=== PATIENT | male | born 1960 | race Caucasian/White ===

== ENCOUNTER 2016-07-10 10:40 | Inpatient (IN) | payer OTHER ==
[~2016-07-10] VITALS: Ht 177.8 cm; Wt 56.3 kg
[2016-07-10] VITALS (10 sets, daily range): BP systolic 114–160; BP diastolic 64–84
[~2016-07-10 10:40] MED LIST: ATARAX,VISTARIL50 MG PO; HYDROXYZINE HCL50 MG PO; LANTUS 10100 UNITS/; LEVEMIR100 UNIT/2 SC; LYRICA75 MG PO; MORPHINE SULFAT15 M1 PO; NORCO 5/3251 TABLET PO; NOVOLOG 10100 UNITS/ SC; OXYCODONE HCL5 MG PO; PRILOSEC10 MG PO; ROXICODONE5 MG PO; ZENPEP DR 10,01 EACH PO; ZENPEP DR 15,01 EACH PO
[2016-07-10 11:16] LABS: EOSINOPHIL (%) 0 % (0-5); HEMATOCRIT 38.3 % (38.0-50.0); IMMATURE GRANULOCYTE (%) 0.2 % (0.0-0.7); IMMATURE GRANULOCYTE COUNT 0.2 K/uL; LYMPHOCYTE COUNT 1.2 K/uL (1.0-2.8); MCH 30.6 PG (29.0-34.0); MCV 87.4 FL (86-99); MEAN PLAT.VOLUME 10.8 uM^3 (9.0-12.4); MONOCYTE COUNT 0.4 K/uL (0-0.8); NEUTROPHIL (%) 87.3 % (45-76); NEUTROPHIL COUNT 10.8 K/uL (1.8-6.4); PLATELET COUNT 117 K/uL (156-360); RBC DIS.WIDTH-SD 40.8 % (39-53); RED BLOOD COUNT 4.38 M/uL (4.00-5.50); WHITE BLOOD COUNT 12.3 K/uL (4.1-10.2)
[2016-07-10 11:23] LABS: CHLORIDE 64 mEq/L (99-109); INTER. NORMALIZED RATIO 1.1; PROTHROMBIN TIME 11.3 (9.2-11.2)
[2016-07-10 11:27] LABS: ANION GAP 44 MEQ/L (2-14)
[2016-07-10 11:28] LABS: TOTAL BILIRUBIN 0.8 mg/dL (0.0-1.0)
[2016-07-10 11:29] LABS: ALKALINE PHOSPHATASE 183 IU/L (3-129); GFR ESTIMATE (CALCULATED) 12 mL/min/
[2016-07-10 11:30] LABS: UREA NITROGEN (BUN) 83 mg/dL (9-23)
[2016-07-10 11:32] LABS: GLUCOSE 788 mg/dL (70-99); SODIUM 118 mEq/L (136-147)
[2016-07-10 11:33] LABS: LIPASE 9 U/L (1.0-51.0)
[2016-07-10 11:34] LABS: TROP-I INTERPRETATION NEGATIVE; TROPONIN-I 0.07 ng/mL (0.0-0.30)
[2016-07-10 13:00] LABS: Estimated Average Glucose 212 mg/dL (70-123)
[2016-07-10] MEDS ORDERED: OMEPRAZOLE40 M1 PO (13:24)
[2016-07-10 14:42] LABS: GLUCOSE 759 mg/dL (70-99)
[2016-07-10 16:27] LABS: ANION GAP 25 MEQ/L (2-14)
[2016-07-10 16:29] LABS: GFR ESTIMATE (CALCULATED) 14 mL/min/
[2016-07-10 16:30] LABS: UREA NITROGEN (BUN) 80 mg/dL (9-23)
[2016-07-10 16:35] LABS: CHLORIDE 84 mEq/L (99-109); GLUCOSE 532 mg/dL (70-99); POTASSIUM 4.9 mEq/L (3.7-5.4); SODIUM 127 mEq/L (136-147)
[2016-07-10 16:55] LABS: POINT-OF-CARE METER ID UU13113702
[2016-07-10 17:58] LABS: METH RESISTANT S AUREUS PCR NEGATIVE (NEGATIVE)
[2016-07-10 18:00] LABS: PROBE CHECK PASS; SPECIMEN PROCESSING CONTROL PASS
[2016-07-10 18:42] LABS: POINT-OF-CARE METER ID UU13113731
[2016-07-10 20:22] LABS: POINT-OF-CARE METER ID UU13113731; POINT-OF-CARE USER ID PHATLC
[2016-07-10 21:22] LABS: POINT-OF-CARE METER ID UU13113731; POINT-OF-CARE USER ID PHATLC
[2016-07-10 21:27] LABS: ANION GAP 17 MEQ/L (2-14); CHLORIDE 88 MEQ/L (99-109); SAMPLE HEMOLYSIS CHECK 0; SAMPLE ICTERIC CHECK 0; SAMPLE LIPEMIA CHECK 0; SODIUM 132 MEQ/L (136-147)
[2016-07-10 21:32] LABS: UREA NITROGEN (BUN) 69 mg/dL (9-23)
[2016-07-10 21:35] LABS: GFR ESTIMATE (CALCULATED) 18 mL/min/; GLUCOSE 169 mg/dL (70-99); POTASSIUM 3.7 MEQ/L (3.7-5.4)
[2016-07-10 21:46] LABS: POINT-OF-CARE METER ID UU13113731; POINT-OF-CARE USER ID PHATLC
[2016-07-11] VITALS (23 sets, daily range): BP systolic 126–163; BP diastolic 70–95
[2016-07-11 00:21] LABS: POINT-OF-CARE METER ID UU14174217; POINT-OF-CARE USER ID PHATLC
[2016-07-11 00:21] LABS: POINT-OF-CARE METER ID UU14174217; POINT-OF-CARE USER ID PHATLC
[2016-07-11 00:37] LABS: CHLORIDE 91 mEq/L (99-109); POTASSIUM 3.5 mEq/L (3.7-5.4); SODIUM 135 mEq/L (136-147)
[2016-07-11 00:40] LABS: ANION GAP 13 MEQ/L (2-14)
[2016-07-11 00:43] LABS: GFR ESTIMATE (CALCULATED) 18 mL/min/
[2016-07-11 00:44] LABS: UREA NITROGEN (BUN) 68 mg/dL (9-23)
[2016-07-11 00:51] LABS: GLUCOSE 77 mg/dL (70-99)
[2016-07-11 01:33] LABS: POINT-OF-CARE METER ID UU14174217; POINT-OF-CARE USER ID PHATLC
[2016-07-11 02:12] LABS: POINT-OF-CARE METER ID UU13113731; POINT-OF-CARE USER ID PHATLC
[2016-07-11 04:33] LABS: POINT-OF-CARE METER ID UU13113731; POINT-OF-CARE USER ID 609231305
[2016-07-11 05:00] LABS: MCH 30.5 PG (29.0-34.0); MCHC 36.5 G/DL (30.0-36.0); MCV 83.6 FL (86-99); RBC DIS.WIDTH-CV 12.7 % (11.8-14.6); RBC DIS.WIDTH-SD 37.4 % (39-53); RED BLOOD COUNT 3.71 M/uL (4.00-5.50)
[2016-07-11 05:14] LABS: CHLORIDE 92 mEq/L (99-109); POTASSIUM 3.5 mEq/L (3.7-5.4); SODIUM 136 mEq/L (136-147)
[2016-07-11 05:15] LABS: GLUCOSE 92 mg/dL (70-99); WHITE BLOOD COUNT 4.8 K/uL (4.1-10.2)
[2016-07-11 05:17] LABS: ANION GAP 12 MEQ/L (2-14)
[2016-07-11 05:19] LABS: GFR ESTIMATE (CALCULATED) 21 mL/min/
[2016-07-11 05:20] LABS: UREA NITROGEN (BUN) 60 mg/dL (9-23)
[2016-07-11 05:45] LABS: MEAN PLAT.VOLUME 10.3 uM^3 (9.0-12.4)
[2016-07-11 05:46] LABS: PLATELET COUNT 60 K/uL (156-360)
[2016-07-11 07:18] LABS: POINT-OF-CARE METER ID UU13113731; POINT-OF-CARE USER ID 606021424
[2016-07-11 10:36] LABS: ANION GAP 13 MEQ/L (2-14); CHLORIDE 87 MEQ/L (99-109); POTASSIUM 3.3 MEQ/L (3.7-5.4); SAMPLE HEMOLYSIS CHECK 0; SAMPLE ICTERIC CHECK 0; SAMPLE LIPEMIA CHECK 0; SODIUM 132 MEQ/L (136-147)
[2016-07-11 10:40] LABS: POINT-OF-CARE METER ID UU14174217; POINT-OF-CARE USER ID PHATLC
[2016-07-11 10:41] LABS: GFR ESTIMATE (CALCULATED) 26 mL/min/; UREA NITROGEN (BUN) 50 mg/dL (9-23)
[2016-07-11 10:50] LABS: GLUCOSE 186 mg/dL (70-99)
[2016-07-11 10:51] LABS: POINT-OF-CARE METER ID UU14174217; POINT-OF-CARE USER ID PHATLC
[2016-07-11 12:33] LABS: POINT-OF-CARE METER ID UU13113731
[2016-07-11 16:45] LABS: ANION GAP 13 MEQ/L (2-14); CHLORIDE 89 MEQ/L (99-109); POTASSIUM 3.4 MEQ/L (3.7-5.4); SAMPLE HEMOLYSIS CHECK 0; SAMPLE ICTERIC CHECK 0; SAMPLE LIPEMIA CHECK 0; SODIUM 132 MEQ/L (136-147)
[2016-07-11 16:51] LABS: GFR ESTIMATE (CALCULATED) 35 mL/min/; GLUCOSE 199 mg/dL (70-99); UREA NITROGEN (BUN) 43 mg/dL (9-23)
[2016-07-11 17:36] LABS: POINT-OF-CARE METER ID UU14174217
[2016-07-12] VITALS (18 sets, daily range): BP systolic 107–164; BP diastolic 51–102
[2016-07-12 00:59] LABS: POINT-OF-CARE METER ID UU14174217
[2016-07-12 04:08] LABS: POINT-OF-CARE METER ID UU14174217
[2016-07-12 04:22] LABS: POINT-OF-CARE METER ID UU14174217
[2016-07-12 06:39] LABS: ANION GAP 9 MEQ/L (2-14); CHLORIDE 93 MEQ/L (99-109); POTASSIUM 3.2 MEQ/L (3.7-5.4); SAMPLE HEMOLYSIS CHECK 0; SAMPLE ICTERIC CHECK 0; SAMPLE LIPEMIA CHECK 0; SODIUM 134 MEQ/L (136-147)
[2016-07-12 06:46] LABS: GFR ESTIMATE (CALCULATED) 42 mL/min/; UREA NITROGEN (BUN) 35 mg/dL (9-23)
[2016-07-12 06:48] LABS: GLUCOSE 46 mg/dL (70-99)
[2016-07-12 08:36] LABS: POINT-OF-CARE METER ID UU14162636
[2016-07-12 09:02] LABS: POINT-OF-CARE METER ID UU14162636
[2016-07-12 09:04] LABS: POINT-OF-CARE METER ID UU14174217
[2016-07-12 12:01] LABS: POINT-OF-CARE METER ID UU14174217
[2016-07-12 17:51] LABS: POINT-OF-CARE METER ID UU14162636
[2016-07-12 22:36] LABS: POINT-OF-CARE METER ID UU14188577
[2016-07-13] VITALS: BP 124/73
[2016-07-13 07:00] LABS: ANION GAP 8 MEQ/L (2-14); CHLORIDE 97 MEQ/L (99-109); SAMPLE HEMOLYSIS CHECK 0; SAMPLE ICTERIC CHECK 0; SAMPLE LIPEMIA CHECK 0; SODIUM 132 MEQ/L (136-147); UREA NITROGEN (BUN) 26 mg/dL (9-23)
[2016-07-13 07:01] LABS: GFR ESTIMATE (CALCULATED) > 59 mL/min/; GLUCOSE 175 mg/dL (70-99); POTASSIUM 4.2 MEQ/L (3.7-5.4)
[2016-07-13 08:33] VITALS: BP 146/84
[2016-07-13 12:08] VITALS: BP 145/72
[2016-07-13 13:56] LABS: POINT-OF-CARE METER ID UU14188577
[2016-07-13 16:35] VITALS: BP 139/69
[2016-07-13 20:06] VITALS: BP 131/69
[2016-07-13 22:15] LABS: POINT-OF-CARE METER ID UU14188577
[2016-07-14 00:06] VITALS: BP 139/67
[2016-07-14 03:51] VITALS: BP 119/64
[2016-07-14 07:57] VITALS: BP 139/60
[2016-07-14 08:52] LABS: ANION GAP 11 MEQ/L (2-14); CHLORIDE 94 MEQ/L (99-109); GFR ESTIMATE (CALCULATED) > 59 mL/min/; POTASSIUM 3.9 MEQ/L (3.7-5.4); SAMPLE HEMOLYSIS CHECK 0; SAMPLE ICTERIC CHECK 0; SAMPLE LIPEMIA CHECK 0; SODIUM 131 MEQ/L (136-147); UREA NITROGEN (BUN) 22 mg/dL (9-23)
[2016-07-14 08:54] LABS: GLUCOSE 34 mg/dL (70-99)
[2016-07-14 15:47] VITALS: BP 135/69
[2016-07-14 20:22] VITALS: BP 118/75
[2016-07-14 23:58] VITALS: BP 122/94
[2016-07-15 03:40] VITALS: BP 108/60
== END 2016-07-15 06:44 | disposition left against medical advice (07) | DRG 637 ==
LOC: EME → EDBD 10:40 → EME 10:40 → EDOF 13:36 → 4WEST 13:36 → EDOF 13:36 → 4WEST 16:23 → 3EAST 07-12 21:56
PROVIDERS: Emergency Medicine; Hospitalist; Internal Medicine; Internal Medicine Pulmonary Disease
DX: E13.10 Other specified diabetes mellitus with ketoacidosis without coma (principal); J18.9 Pneumonia, unspecified organism; K92.2 Gastrointestinal hemorrhage, unspecified; K86.1 Other chronic pancreatitis; F33.9 Major depressive disorder, recurrent, unspecified; E44.0 Moderate protein-calorie malnutrition; N17.9 Acute kidney failure, unspecified; K92.0 Hematemesis; B37.0 Candidal stomatitis; F10.239 Alcohol dependence with withdrawal, unspecified; E87.5 Hyperkalemia; R19.7 Diarrhea, unspecified; B37.9 Candidiasis, unspecified; E86.0 Dehydration; F17.200 Nicotine dependence, unspecified, uncomplicated; R13.10 Dysphagia, unspecified; J02.9 Acute pharyngitis, unspecified; G89.29 Other chronic pain; F14.10 Cocaine abuse, uncomplicated; M19.90 Unspecified osteoarthritis, unspecified site
CPT/HCPCS: 71010; 73030; 73080; 73564; 74176; 80048; 80048 91; 80053; 82948; 83036; 83605; 83690; 84100; 84484; 84999; 85025; 85027; 85610; 85730; 86850; 86900; 86901; 87040; 87641; 93005; 94640; 94640 76; 94799; 99202; 99281; 99285; C9113; J0692; J0696; J1815; J2405; J3010; J3370; J3411; J3480; J7030; J7050; J7070; S0028

== ENCOUNTER 2017-01-24 14:58 | Inpatient (IN) | payer OTHER ==
[~2017-01-24] VITALS: Ht 177.8 cm; Wt 65.7 kg
[~2017-01-24 14:58] MED LIST changes: +OMEPRAZOLE40 M1 PO
[2017-01-24 17:09] LABS: HEMATOCRIT 40.8 % (38.0-50.0); MCH 30.5 PG (29.0-34.0); MCHC 32.1 G/DL (30.0-36.0); MCV 94.9 FL (86-99); MEAN PLAT.VOLUME 9.9 uM^3 (9.0-12.4); NRBC (%) 0.1 /100 WBC (0-0); PLATELET COUNT 366 K/uL (156-360); RBC DIS.WIDTH-SD 55.8 % (39-53); WHITE BLOOD COUNT 16.5 K/uL (4.1-10.2)
[2017-01-24 17:17] LABS: CHLORIDE 89 mEq/L (99-109); SODIUM 140 mEq/L (136-147)
[2017-01-24 17:19] LABS: GLUCOSE 255 mg/dL (70-99)
[2017-01-24 17:20] LABS: ANION GAP 46 MEQ/L (2-14)
[2017-01-24 17:22] LABS: SERUM ETHYL ALCOHOL 299 mg/dL
[2017-01-24 17:23] LABS: GFR ESTIMATE (CALCULATED) 24 mL/min/
[2017-01-24 17:25] LABS: UREA NITROGEN (BUN) 36 mg/dL (9-23)
[2017-01-24 17:26] LABS: SALICYLATE < 5.0 MG/DL (15-30)
[2017-01-24 19:44] LABS: VENOUS PCO2 22 mm Hg (41-51)
[2017-01-24 20:13] LABS: VENOUS PCO2 < 20 mm Hg (41-51)
[2017-01-24 20:17] LABS: CARBON DIOXIDE (BICARBONATE) ND MEQ/L (20-31)
[2017-01-24 20:17] LABS: CARBON DIOXIDE (BICARBONATE) ND MEQ/L (20-31)
[2017-01-24 20:18] LABS: Estimated Average Glucose 169 mg/dL (70-123); HEMOGLOBIN A1c (GLYCOHEMOGLOB) 7.5 % HGB (Below 5.7)
[2017-01-24 20:55] LABS: CREATINE KINASE 99 IU/L (1-294)
[2017-01-24 21:54] LABS: LIPASE 15 U/L (1.0-51.0)
[2017-01-24 21:58] LABS: POINT-OF-CARE METER ID UU13113702
[2017-01-24] MEDS ORDERED: LYRICA75 MG PO (22:11)
[2017-01-24] MEDS ORDERED: OXYCODONE-APAP1 EAC6 PO (22:11)
[2017-01-24 23:04] LABS: POINT-OF-CARE METER ID UU13113702
[2017-01-24 23:58] VITALS: BP 105/67
[2017-01-25] VITALS (15 sets, daily range): BP systolic 140–162; BP diastolic 74–90
[2017-01-25 00:05] LABS: POINT-OF-CARE METER ID UU14208751
[2017-01-25 00:48] LABS: EOSINOPHIL (%) 0 % (0-5); HEMATOCRIT 28.9 % (38.0-50.0); IMMATURE GRANULOCYTE (%) 0.7 % (0.0-0.7); IMMATURE GRANULOCYTE COUNT 0.1 K/uL; INSTRUMENT ABS NEUTROPHIL CT 11.4 K/uL; LYMPHOCYTE COUNT 0.9 K/uL (1.0-2.8); MCH 30.3 PG (29.0-34.0); MCHC 31.5 G/DL (30.0-36.0); MCV 96.3 FL (86-99); MONOCYTE (%) 6.9 % (3-12); MONOCYTE COUNT 0.9 K/uL (0-0.8); NEUTROPHIL (%) 85.6 % (45-76); NEUTROPHIL COUNT 11.4 K/uL (1.8-6.4); NRBC (%) 0.4 /100 WBC (0-0); RBC DIS.WIDTH-CV 16.1 % (11.8-14.6); RBC DIS.WIDTH-SD 57.6 % (39-53); WHITE BLOOD COUNT 13.3 K/uL (4.1-10.2)
[2017-01-25 00:53] LABS: POTASSIUM 5.4 mEq/L (3.7-5.4); SODIUM 140 mEq/L (136-147)
[2017-01-25 00:54] LABS: AMYLASE 64 IU/L (1-118); MAGNESIUM 1.7 mg/dL (1.3-2.7)
[2017-01-25 00:55] LABS: GLUCOSE 148 mg/dL (70-99)
[2017-01-25 00:56] LABS: CHLORIDE 98 mEq/L (99-109); GLUCOSE 148 mg/dL (70-99)
[2017-01-25 00:57] LABS: ANION GAP 35 MEQ/L (2-14); TOTAL BILIRUBIN 0.4 mg/dL (0.0-1.0)
[2017-01-25 00:59] LABS: ALKALINE PHOSPHATASE 231 IU/L (3-129); GFR ESTIMATE (CALCULATED) 29 mL/min/
[2017-01-25 01:00] LABS: SERUM ETHYL ALCOHOL 87 mg/dL; UREA NITROGEN (BUN) 36 mg/dL (9-23)
[2017-01-25 01:03] LABS: LIPASE 15 U/L (1.0-51.0)
[2017-01-25 01:23] LABS: POINT-OF-CARE METER ID UU14208751
[2017-01-25 01:29] LABS: MEAN PLAT.VOLUME 9.3 uM^3 (9.0-12.4); PLAT.SUFFICIENCY ADEQUATE; PLATELET COUNT 215 K/uL (156-360)
[2017-01-25 02:25] LABS: POINT-OF-CARE METER ID UU14208751
[2017-01-25 02:27] LABS: METH RESISTANT S AUREUS PCR NEGATIVE (NEGATIVE)
[2017-01-25 02:29] LABS: PROBE CHECK PASS; SPECIMEN PROCESSING CONTROL PASS
[2017-01-25 02:45] LABS: ADD MIUA? YES; BILIRUBIN NEGATIVE; BLOOD MODERATE; COLOR AMBER ((YELLOW)); GLUCOSE (STRIP) 50; KETONES 20; LEUKOCYTES NEGATIVE; NITRITE NEGATIVE; PROTEIN (STRIP) 100; SPECIFIC GRAVITY 1.016 (1.000-1.030); UROBILINOGEN 0.2 MG/DL (0.2-1.0)
[2017-01-25 03:10] LABS: EPITHELIAL CELLS 1+ /HPF; MUCUS NONE SEEN /LPF; RED BLOOD CELLS 0-5 /HPF (0-5); WHITE BLOOD CELLS 0-5 /HPF (0-5)
[2017-01-25 03:11] LABS: BACTERIA RARE /HPF; CASTS PRESENT /LPF; CRYSTALS PRESENT; UCUL ADDED? NO
[2017-01-25 03:12] LABS: AMORPHOUS URATES CRYSTALS 1+; COARSE GRANULAR CASTS 0-5 /LPF; FINE GRANULAR CASTS 0-5 /LPF
[2017-01-25 03:22] LABS: POINT-OF-CARE METER ID UU14208751
[2017-01-25 04:07] LABS: CHLORIDE 99 mEq/L (99-109); POTASSIUM 5.2 mEq/L (3.7-5.4); SODIUM 135 mEq/L (136-147)
[2017-01-25 04:09] LABS: GLUCOSE 217 mg/dL (70-99)
[2017-01-25 04:10] LABS: ANION GAP 25 MEQ/L (2-14)
[2017-01-25 04:13] LABS: GFR ESTIMATE (CALCULATED) 30 mL/min/
[2017-01-25 04:14] LABS: UREA NITROGEN (BUN) 37 mg/dL (9-23)
[2017-01-25 04:30] LABS: POINT-OF-CARE METER ID UU14208751
[2017-01-25 05:23] LABS: POINT-OF-CARE METER ID UU14208751
[2017-01-25 06:14] LABS: POINT-OF-CARE METER ID UU14208751
[2017-01-25 07:40] LABS: POINT-OF-CARE METER ID UU13113748
[2017-01-25 08:50] LABS: ANION GAP 18 MEQ/L (2-14); CHLORIDE 103 MEQ/L (99-109); GFR ESTIMATE (CALCULATED) 32 mL/min/; GLUCOSE 192 mg/dL (70-99); POTASSIUM 4.8 MEQ/L (3.7-5.4); SAMPLE HEMOLYSIS CHECK 0; SAMPLE ICTERIC CHECK 0; SAMPLE LIPEMIA CHECK 0; SODIUM 139 MEQ/L (136-147); UREA NITROGEN (BUN) 41 mg/dL (9-23)
[2017-01-25 08:50] LABS: POINT-OF-CARE METER ID UU13113748
[2017-01-25 09:46] LABS: POINT-OF-CARE METER ID UU13113748
[2017-01-25 10:14] LABS: POINT-OF-CARE METER ID UU13113748
[2017-01-25 11:08] LABS: POINT-OF-CARE METER ID UU13113748
[2017-01-25 11:53] LABS: ANION GAP 13 MEQ/L (2-14); CHLORIDE 104 MEQ/L (99-109); GFR ESTIMATE (CALCULATED) 35 mL/min/; GLUCOSE 136 mg/dL (70-99); POTASSIUM 4.5 MEQ/L (3.7-5.4); SAMPLE HEMOLYSIS CHECK 0; SAMPLE ICTERIC CHECK 0; SAMPLE LIPEMIA CHECK 0; SODIUM 139 MEQ/L (136-147); UREA NITROGEN (BUN) 40 mg/dL (9-23)
[2017-01-25 12:09] LABS: POINT-OF-CARE METER ID UU13113748
[2017-01-25 13:09] LABS: POINT-OF-CARE METER ID UU13113748
[2017-01-25 14:07] LABS: POINT-OF-CARE METER ID UU13113748
[2017-01-25 15:05] LABS: POINT-OF-CARE METER ID UU13113748
[2017-01-25 16:11] LABS: ANION GAP 11 MEQ/L (2-14); CHLORIDE 104 MEQ/L (99-109); SAMPLE HEMOLYSIS CHECK 0; SAMPLE ICTERIC CHECK 0; SAMPLE LIPEMIA CHECK 0; SODIUM 140 MEQ/L (136-147)
[2017-01-25 16:12] LABS: POINT-OF-CARE METER ID UU13113748
[2017-01-25 16:17] LABS: GFR ESTIMATE (CALCULATED) 39 mL/min/; GLUCOSE 127 mg/dL (70-99); UREA NITROGEN (BUN) 33 mg/dL (9-23)
[2017-01-25 18:24] LABS: POINT-OF-CARE METER ID UU13113748
[2017-01-25 21:56] LABS: HEMATOCRIT 25.9 % (38.0-50.0); MCH 29.7 PG (29.0-34.0); MCHC 33.6 G/DL (30.0-36.0); MCV 88.4 FL (86-99); RBC DIS.WIDTH-CV 15.6 % (11.8-14.6); RED BLOOD COUNT 2.93 M/uL (4.00-5.50); WHITE BLOOD COUNT 8.3 K/uL (4.1-10.2)
[2017-01-25 22:25] LABS: MEAN PLAT.VOLUME 9.4 uM^3 (9.0-12.4); PLAT.SUFFICIENCY DECREASED; PLATELET COUNT 80 K/uL (156-360)
[2017-01-26] VITALS (18 sets, daily range): BP systolic 120–158; BP diastolic 68–92
[2017-01-26 00:34] LABS: POINT-OF-CARE METER ID UU14174217; POINT-OF-CARE USER ID PHATLC
[2017-01-26 00:37] LABS: CHLORIDE 102 mEq/L (99-109); POTASSIUM 3.5 mEq/L (3.7-5.4); SODIUM 137 mEq/L (136-147)
[2017-01-26 00:38] LABS: GLUCOSE 165 mg/dL (70-99)
[2017-01-26 00:40] LABS: ANION GAP 10 MEQ/L (2-14)
[2017-01-26 00:42] LABS: GFR ESTIMATE (CALCULATED) 52 mL/min/
[2017-01-26 00:43] LABS: UREA NITROGEN (BUN) 26 mg/dL (9-23)
[2017-01-26 06:27] LABS: POINT-OF-CARE METER ID UU13113731; POINT-OF-CARE USER ID PHATLC
[2017-01-26 09:23] LABS: ANION GAP 9 MEQ/L (2-14); CHLORIDE 101 MEQ/L (99-109); SAMPLE HEMOLYSIS CHECK 2; SAMPLE ICTERIC CHECK 0; SAMPLE LIPEMIA CHECK 0; SODIUM 136 MEQ/L (136-147)
[2017-01-26 09:30] LABS: GFR ESTIMATE (CALCULATED) > 59 mL/min/; GLUCOSE 174 mg/dL (70-99); UREA NITROGEN (BUN) 19 mg/dL (9-23)
[2017-01-26 09:31] LABS: POTASSIUM 4.3 MEQ/L (3.7-5.4)
[2017-01-26 11:49] LABS: POINT-OF-CARE METER ID UU13113731
[2017-01-26 14:04] LABS: EOSINOPHIL (%) 0 % (0-5); HEMATOCRIT 25.3 % (38.0-50.0); IMMATURE GRANULOCYTE (%) 0.2 % (0.0-0.7); INSTRUMENT ABS NEUTROPHIL CT 4.5 K/uL; LYMPHOCYTE COUNT 1.3 K/uL (1.0-2.8); MCV 88.2 FL (86-99); MONOCYTE (%) 3.6 % (3-12); MONOCYTE COUNT 0.2 K/uL (0-0.8); NEUTROPHIL (%) 74.3 % (45-76); NEUTROPHIL COUNT 4.5 K/uL (1.8-6.4); PLATELET COUNT 61 K/uL (156-360); RBC DIS.WIDTH-CV 15.2 % (11.8-14.6); RED BLOOD COUNT 2.87 M/uL (4.00-5.50); WHITE BLOOD COUNT 6.1 K/uL (4.1-10.2)
[2017-01-26 16:45] LABS: POINT-OF-CARE METER ID UU13113731
[2017-01-26 20:59] LABS: POINT-OF-CARE METER ID UU13113731; POINT-OF-CARE USER ID PHATLC
[2017-01-26 22:31] LABS: POINT-OF-CARE METER ID UU14162636; POINT-OF-CARE USER ID PHATLC
[2017-01-27] VITALS (11 sets, daily range): BP systolic 123–154; BP diastolic 72–93
[2017-01-27 01:32] LABS: CHLORIDE 100 mEq/L (99-109); SODIUM 136 mEq/L (136-147)
[2017-01-27 01:35] LABS: ANION GAP 8 MEQ/L (2-14); GLUCOSE 111 mg/dL (70-99); POTASSIUM 3.1 mEq/L (3.7-5.4)
[2017-01-27 01:37] LABS: GFR ESTIMATE (CALCULATED) > 59 mL/min/
[2017-01-27 01:38] LABS: UREA NITROGEN (BUN) 10 mg/dL (9-23)
[2017-01-27 06:03] LABS: POINT-OF-CARE METER ID UU14208751; POINT-OF-CARE USER ID PHATLC
[2017-01-27 07:26] LABS: HEMATOCRIT 26.8 % (38.0-50.0); MCH 30.1 PG (29.0-34.0); MCHC 33.2 G/DL (30.0-36.0); MCV 90.5 FL (86-99); MEAN PLAT.VOLUME 9.3 uM^3 (9.0-12.4); PLATELET COUNT 55 K/uL (156-360); RBC DIS.WIDTH-CV 15.3 % (11.8-14.6); RBC DIS.WIDTH-SD 50.8 % (39-53); RED BLOOD COUNT 2.96 M/uL (4.00-5.50); WHITE BLOOD COUNT 4.5 K/uL (4.1-10.2)
[2017-01-27 07:56] LABS: ANION GAP 5 MEQ/L (2-14); CHLORIDE 103 MEQ/L (99-109); GFR ESTIMATE (CALCULATED) > 59 mL/min/; GLUCOSE 91 mg/dL (70-99); MAGNESIUM 1.2 mg/dl (1.3-2.7); SAMPLE HEMOLYSIS CHECK 0; SAMPLE ICTERIC CHECK 0; SAMPLE LIPEMIA CHECK 0; SODIUM 139 MEQ/L (136-147); UREA NITROGEN (BUN) 9 mg/dL (9-23)
[2017-01-27 10:53] LABS: C DIFF TOXIN NEGATIVE (NEGATIVE)
[2017-01-27 10:55] LABS: PROBE CHECK PASS; SPECIMEN PROCESSING CONTROL PASS
[2017-01-27 11:52] LABS: POINT-OF-CARE METER ID UU13113731
[2017-01-27 16:12] LABS: POINT-OF-CARE METER ID UU13113748
[2017-01-28] VITALS: BP 147/82
[2017-01-28 03:58] VITALS: BP 158/82
[2017-01-28 06:34] LABS: HEMATOCRIT 28.5 % (38.0-50.0); MCH 31.9 PG (29.0-34.0); MCHC 35.4 G/DL (30.0-36.0); MCV 89.9 FL (86-99); MEAN PLAT.VOLUME 10.1 uM^3 (9.0-12.4); PLATELET COUNT 69 K/uL (156-360); RBC DIS.WIDTH-CV 14.6 % (11.8-14.6); RBC DIS.WIDTH-SD 48.5 % (39-53); RED BLOOD COUNT 3.17 M/uL (4.00-5.50); WHITE BLOOD COUNT 4.5 K/uL (4.1-10.2)
[2017-01-28 06:45] LABS: INTER. NORMALIZED RATIO 0.9; PROTHROMBIN TIME 9.7 SEC (10.2-12.9)
[2017-01-28 06:54] LABS: PTT 27.9 SEC (25-37)
[2017-01-28 07:03] LABS: ALKALINE PHOSPHATASE 152 IU/L (3-129); ANION GAP 7 MEQ/L (2-14); CHLORIDE 102 MEQ/L (99-109); DIRECT BILIRUBIN 0.2 mg/dL (0.0-0.3); GFR ESTIMATE (CALCULATED) > 59 mL/min/; POTASSIUM 3.4 MEQ/L (3.7-5.4); SAMPLE HEMOLYSIS CHECK 0; SAMPLE ICTERIC CHECK 0; SAMPLE LIPEMIA CHECK 0; SODIUM 136 MEQ/L (136-147); TOTAL BILIRUBIN 0.5 MG/DL (0.0-1.0); UREA NITROGEN (BUN) 8 mg/dL (9-23)
[2017-01-28 07:04] LABS: GLUCOSE 51 mg/dL (70-99); MAGNESIUM 2.3 mg/dl (1.3-2.7)
[2017-01-28 07:23] LABS: POINT-OF-CARE METER ID UU14188625
[2017-01-28 08:04] VITALS: BP 150/80
[2017-01-28 11:13] VITALS: BP 129/74
[2017-01-28 14:41] LABS: POINT-OF-CARE METER ID UU14107333
[2017-01-28 17:59] LABS: POINT-OF-CARE METER ID UU14188625
[2017-01-28 19:33] VITALS: BP 151/70
[2017-01-28 21:11] LABS: POINT-OF-CARE METER ID UU14188625
[2017-01-29 00:06] VITALS: BP 131/68
[2017-01-29 02:44] LABS: POINT-OF-CARE METER ID UU14174225
[2017-01-29 03:01] LABS: POINT-OF-CARE METER ID UU14174225
[2017-01-29 03:57] VITALS: BP 133/72
[2017-01-29 06:35] LABS: HEMATOCRIT 27.5 % (38.0-50.0); MCH 31.1 PG (29.0-34.0); MCHC 34.9 G/DL (30.0-36.0); MEAN PLAT.VOLUME 10.2 uM^3 (9.0-12.4); PLATELET COUNT 66 K/uL (156-360); RBC DIS.WIDTH-CV 14.2 % (11.8-14.6); RBC DIS.WIDTH-SD 46.1 % (39-53); RED BLOOD COUNT 3.09 M/uL (4.00-5.50); WHITE BLOOD COUNT 5.1 K/uL (4.1-10.2)
[2017-01-29 06:57] LABS: ANION GAP 5 MEQ/L (2-14); CHLORIDE 100 MEQ/L (99-109); GFR ESTIMATE (CALCULATED) > 59 mL/min/; SAMPLE HEMOLYSIS CHECK 0; SAMPLE ICTERIC CHECK 0; SAMPLE LIPEMIA CHECK 0; SODIUM 134 MEQ/L (136-147); UREA NITROGEN (BUN) 8 mg/dL (9-23)
[2017-01-29 06:58] LABS: GLUCOSE 144 mg/dL (70-99); POTASSIUM 4.1 MEQ/L (3.7-5.4)
[2017-01-29] MEDS ORDERED: SUCRALFATE1 GM/10 ML PO (07:49)
[2017-01-29] MEDS ORDERED: FOLIC ACID1 MG PO (07:50)
[2017-01-29] MEDS ORDERED: OMEPRAZOLE40 M1 PO (07:50)
[2017-01-29] MEDS ORDERED: LEVEMIR100 UNIT/2 SC ×2 (07:50)
[2017-01-29] MEDS ORDERED: Thiamine,Vitamin B1 PO (07:51)
[2017-01-29 07:58] VITALS: BP 133/79
[2017-01-29 08:07] LABS: POINT-OF-CARE METER ID UU14188625
[2017-01-29 11:32] VITALS: BP 142/84
[2017-01-29 11:50] LABS: POINT-OF-CARE METER ID UU14188625
[2017-01-29 15:28] LABS: PLT AB:HLA CLASS I Negative (Negative); Plt Ab:GP IIb/IIIa POSITIVE (Negative); Plt Ab:GP Ia/IIa Indeterminate (Negative); Plt Ab:GP Ib/IX Negative (Negative)
== END 2017-01-29 13:30 | disposition home or self-care (01) | DRG 637 ==
LOC: EME 14:58 → 5SOUTH 22:47 → 4WEST 22:47 → EDOF 22:47 → ENRESERV 22:48 → 4WEST 23:46 → ENRESERV 01-27 16:29 → 4WEST 01-27 16:30 → ENRESERV 01-27 16:42 → 5SOUTH 01-27 18:50
PROVIDERS: Emergency Medicine; Hospitalist; Internal Medicine; Internal Medicine Critical Care Medicine; Internal Medicine Gastroenterology; Specialist
PROC: 0DB78ZX Excision of Stomach, Pylorus, Via Natural or Artificial Opening Endoscopic, Diagnostic (ICD-10-PCS; principal; 2017-01-28)
DX: E13.10 Other specified diabetes mellitus with ketoacidosis without coma (principal); R57.1 Hypovolemic shock; J69.0 Pneumonitis due to inhalation of food and vomit; F17.200 Nicotine dependence, unspecified, uncomplicated; N17.9 Acute kidney failure, unspecified; K85.90 Acute pancreatitis without necrosis or infection, unspecified; D64.9 Anemia, unspecified; D69.6 Thrombocytopenia, unspecified; K70.9 Alcoholic liver disease, unspecified; K86.1 Other chronic pancreatitis; K76.0 Fatty (change of) liver, not elsewhere classified; F10.20 Alcohol dependence, uncomplicated; F32.9 Major depressive disorder, single episode, unspecified; Z68.1 Body mass index [BMI] 19.9 or less, adult; Y90.8 Blood alcohol level of 240 mg/100 ml or more; F19.10 Other psychoactive substance abuse, uncomplicated; T65.91XA Toxic effect of unspecified substance, accidental (unintentional), initial encounter; K25.9 Gastric ulcer, unspecified as acute or chronic, without hemorrhage or perforation; K29.60 Other gastritis without bleeding; G89.29 Other chronic pain; M19.90 Unspecified osteoarthritis, unspecified site; J44.9 Chronic obstructive pulmonary disease, unspecified; K44.9 Diaphragmatic hernia without obstruction or gangrene; Z86.73 Personal history of transient ischemic attack (TIA), and cerebral infarction without residual deficits
CPT/HCPCS: 71010; 74176; 80048; 80048 91; 80053; 80069; 80076; 81003; 82010; 82150; 82550; 82803; 82947; 82947 91; 82948; 83036; 83605; 83690; 83735; 84100; 85025; 85027; 85610; 85730; 86022 90; 87040; 87493; 87641; 88305; 88342 TC; 93005; 99281; 99285; C1751; C9113; G0480; J0295; J1644; J1815; J2060; J2250; J2405; J2543; J3010; J3370; J3411; J3475; J7030; J7050; J7120; Q0177; S0030

== ENCOUNTER 2017-09-23 08:35 | Emergency (ER) | payer OTHER ==
[~2017-09-23] VITALS: Ht 177.8 cm; Wt 58.4 kg
[~2017-09-23 08:35] MED LIST changes: +FOLIC ACID1 MG PO; +OXYCODONE-APAP1 EAC6 PO; +SUCRALFATE1 GM/10 ML PO; +Thiamine,Vitamin B1 PO
[2017-09-23 09:07] LABS: BASOPHIL (%) 0.8 % (0-1); BASOPHIL COUNT 0.1 K/uL (0-0.1); EOSINOPHIL COUNT 0.1 K/uL (0-0.3); HEMATOCRIT 36.2 % (38.0-50.0); HEMOGLOBIN 12.3 G/DL (12.5-16.6); IMMATURE GRANULOCYTE (%) 0.6 % (0.0-0.7); LYMPHOCYTE (%) 27.7 % (15-42); LYMPHOCYTE COUNT 2.2 K/uL (1.0-2.8); MCH 28.6 PG (29.0-34.0); MCV 84.2 FL (86-99); MONOCYTE (%) 6.7 % (3-12); MONOCYTE COUNT 0.5 K/uL (0-0.8); NEUTROPHIL (%) 63.2 % (45-76); PLATELET COUNT 276 K/uL (156-360); RBC DIS.WIDTH-CV 19.7 % (11.8-14.6); RBC DIS.WIDTH-SD 60.7 % (39-53)
[2017-09-23 09:18] LABS: ALBUMIN 3.5 g/dL (3.2-4.8); CHLORIDE 94 mEq/L (99-109); POTASSIUM 4.2 mEq/L (3.7-5.4); SODIUM 131 mEq/L (136-147)
[2017-09-23 09:19] LABS: MAGNESIUM 1.6 mg/dL (1.3-2.7)
[2017-09-23 09:21] LABS: GLUCOSE 305 mg/dL (70-99); TOTAL PROTEIN 6.8 g/dL (6.4-8.3)
[2017-09-23 09:24] LABS: ALKALINE PHOSPHATASE 427 IU/L (3-129); SERUM ETHYL ALCOHOL < 10 mg/dL
[2017-09-23 09:25] LABS: GFR ESTIMATE (CALCULATED) > 59 mL/min/ (58.99-99999)
[2017-09-23 09:26] LABS: AST (GOT) 63 IU/L (2-34); UREA NITROGEN (BUN) 17 mg/dL (9-23)
[2017-09-23 09:27] LABS: ALT (GPT) 56 IU/L (3-49)
[2017-09-23 09:29] LABS: TOTAL BILIRUBIN 0.5 mg/dL (0.0-1.0)
[2017-09-23] MEDS ORDERED: ATARAX,VISTARIL25 MG PO (09:32)
[2017-09-23 09:35] VITALS: BP 154/100
[2017-09-23 09:50] LABS: AMPHETAMINE NEGATIVE (500 ng/mL); BARBITURATES NEGATIVE (200 ng/mL); BENZODIAZEPINES NEGATIVE (150 ng/mL); BUPRENORPHINE NEGATIVE (10 ng/mL); COCAINE NEGATIVE (150 ng/mL); METHADONE NEGATIVE (200 ng/mL); METHAMPHETAMINE NEGATIVE (500 ng/mL); OPIATES (MORPHINE) NEGATIVE (100 ng/mL); OXYCODONE PRESUMPTIVE POSITIVE (100 ng/mL); PHENCYCLIDINE NEGATIVE (25 ng/mL); PROPOXYPHENE NEGATIVE (300 ng/mL); THC CANNABINOIDS PRESUMPTIVE POSITIVE (50 ng/mL); TRICYCLIC ANTIDEPRESSANTS NEGATIVE (300 ng/mL)
== END 2017-09-23 09:35 | disposition home or self-care (01) ==
LOC: EME 08:35
PROVIDERS: Emergency Medicine
DX: G47.00 Insomnia, unspecified (principal); F17.203 Nicotine dependence unspecified, with withdrawal; F32.9 Major depressive disorder, single episode, unspecified; Z86.73 Personal history of transient ischemic attack (TIA), and cerebral infarction without residual deficits; Z90.49 Acquired absence of other specified parts of digestive tract
CPT/HCPCS: 80053; 83735; 84999; 85025; 99281; 99284; G0480

== ENCOUNTER 2017-10-28 11:55 | Emergency (ER) | payer OTHER ==
[~2017-10-28] VITALS: Ht 177.8 cm; Wt 61.4 kg
[~2017-10-28 11:55] MED LIST changes: +ATARAX,VISTARIL25 MG PO
[2017-10-28 13:08] LABS: BASOPHIL (%) 0.5 % (0-1); BASOPHIL COUNT 0.1 K/uL (0-0.1); EOSINOPHIL (%) 0 % (0-5); HEMATOCRIT 32.2 % (38.0-50.0); HEMOGLOBIN 11.3 G/DL (12.5-16.6); IMMATURE GRANULOCYTE (%) 1.7 % (0.0-0.7); LYMPHOCYTE (%) 11.9 % (15-42); LYMPHOCYTE COUNT 1.3 K/uL (1.0-2.8); MCH 29.7 PG (29.0-34.0); MCHC 35.1 G/DL (30.0-36.0); MCV 84.7 FL (86-99); MONOCYTE (%) 5.3 % (3-12); MONOCYTE COUNT 0.6 K/uL (0-0.8); NEUTROPHIL (%) 80.6 % (45-76); NEUTROPHIL COUNT 8.5 K/uL (1.8-6.4); PLATELET COUNT 201 K/uL (156-360); RBC DIS.WIDTH-CV 16.4 % (11.8-14.6); RBC DIS.WIDTH-SD 51.2 % (39-53); WHITE BLOOD COUNT 10.6 K/uL (4.1-10.2)
[2017-10-28 13:14] LABS: ALBUMIN 2.8 g/dL (3.2-4.8); CHLORIDE 90 mEq/L (99-109); POTASSIUM 5.6 mEq/L (3.7-5.4); SODIUM 130 mEq/L (136-147)
[2017-10-28 13:16] LABS: GLUCOSE 261 mg/dL (70-99); TOTAL PROTEIN 6.2 g/dL (6.4-8.3)
[2017-10-28 13:18] LABS: TOTAL BILIRUBIN 0.7 mg/dL (0.0-1.0)
[2017-10-28 13:20] LABS: ALKALINE PHOSPHATASE 487 IU/L (3-129); CREATININE 0.8 mg/dL (0.6-1.3); GFR ESTIMATE (CALCULATED) > 59 mL/min/ (58.99-99999)
[2017-10-28 13:21] LABS: AST (GOT) 42 IU/L (2-34); UREA NITROGEN (BUN) 14 mg/dL (9-23)
[2017-10-28 13:23] LABS: ALT (GPT) 28 IU/L (3-49); LIPASE 3 U/L (1.0-51.0)
[2017-10-28 13:26] LABS: TROP-I INTERPRETATION NEGATIVE; TROPONIN-I < 0.01 ng/mL (0.0-0.30)
[2017-10-28 15:14] LABS: APPEARANCE CLEAR ((CLEAR)); BILIRUBIN NEGATIVE; BLOOD NEGATIVE; COLOR YELLOW ((YELLOW)); GLUCOSE (STRIP) >=500; KETONES 80; LEUKOCYTES NEGATIVE; NITRITE NEGATIVE; PROTEIN (STRIP) 30; SPECIFIC GRAVITY 1.015 (1.000-1.030); UROBILINOGEN 0.2 MG/DL (0.2-1.0)
[2017-10-28 17:30] VITALS: BP 147/67
== END 2017-10-28 17:55 | disposition home or self-care (01) ==
LOC: EME 11:55
PROVIDERS: Physician Assistant
DX: E86.0 Dehydration (principal); M25.561 Pain in right knee; M25.562 Pain in left knee; R11.2 Nausea with vomiting, unspecified; R19.7 Diarrhea, unspecified; Z86.73 Personal history of transient ischemic attack (TIA), and cerebral infarction without residual deficits; Z90.49 Acquired absence of other specified parts of digestive tract; E11.9 Type 2 diabetes mellitus without complications; Z79.4 Long term (current) use of insulin; F17.200 Nicotine dependence, unspecified, uncomplicated
CPT/HCPCS: 71046; 80053; 81003; 83690; 84484; 85025; 93005; 99281; 99285; J7030

== ENCOUNTER 2017-11-23 19:46 | Inpatient (IN) | payer OTHER ==
[~2017-11-23] VITALS: Ht 177.8 cm; Wt 55.1 kg
[2017-11-23 20:42] LABS: HEMATOCRIT 28.8 % (38.0-50.0); HEMOGLOBIN 10.4 G/DL (12.5-16.6); MCH 30.7 PG (29.0-34.0); MCHC 36.1 G/DL (30.0-36.0); PLATELET COUNT 176 K/uL (156-360); RBC DIS.WIDTH-CV 15.8 % (11.8-14.6); RBC DIS.WIDTH-SD 47.9 % (39-53); RED BLOOD COUNT 3.39 M/uL (4.00-5.50); WHITE BLOOD COUNT 6.2 K/uL (4.1-10.2)
[2017-11-23 20:52] LABS: CHLORIDE 88 mEq/L (99-109); POTASSIUM 4.1 mEq/L (3.7-5.4); SODIUM 128 mEq/L (136-147)
[2017-11-23 20:54] LABS: GLUCOSE 264 mg/dL (70-99)
[2017-11-23 20:57] LABS: SERUM ETHYL ALCOHOL < 10 mg/dL
[2017-11-23 20:58] LABS: CREATININE 0.8 mg/dL (0.6-1.3); GFR ESTIMATE (CALCULATED) > 59 mL/min/ (58.99-99999)
[2017-11-23 20:59] LABS: UREA NITROGEN (BUN) 18 mg/dL (9-23)
[2017-11-23 22:15] LABS: AMPHETAMINE NEGATIVE (500 ng/mL); BARBITURATES NEGATIVE (200 ng/mL); BENZODIAZEPINES NEGATIVE (150 ng/mL); BUPRENORPHINE NEGATIVE (10 ng/mL); COCAINE NEGATIVE (150 ng/mL); METHADONE NEGATIVE (200 ng/mL); METHAMPHETAMINE NEGATIVE (500 ng/mL); OPIATES (MORPHINE) NEGATIVE (100 ng/mL); OXYCODONE PRESUMPTIVE POSITIVE (100 ng/mL); PHENCYCLIDINE NEGATIVE (25 ng/mL); PROPOXYPHENE NEGATIVE (300 ng/mL); THC CANNABINOIDS PRESUMPTIVE POSITIVE (50 ng/mL); TRICYCLIC ANTIDEPRESSANTS NEGATIVE (300 ng/mL)
[2017-11-23] MEDS ORDERED: FOLIC ACID1 MG PO (23:04)
[2017-11-23] MEDS ORDERED: LEVEMIR100 UNIT/2 SC (23:05)
[2017-11-23] MEDS ORDERED: MULTI VITAMIN1 EACH PO (23:07)
[2017-11-24 01:50] LABS: CHLORIDE 91 mEq/L (99-109); POTASSIUM 4.1 mEq/L (3.7-5.4); SODIUM 128 mEq/L (136-147)
[2017-11-24 01:52] LABS: GLUCOSE 206 mg/dL (70-99)
[2017-11-24 01:56] LABS: CREATININE 0.7 mg/dL (0.6-1.3); GFR ESTIMATE (CALCULATED) > 59 mL/min/ (58.99-99999)
[2017-11-24 01:57] LABS: UREA NITROGEN (BUN) 18 mg/dL (9-23)
[2017-11-24 03:19] LABS: ALBUMIN 2.5 g/dL (3.2-4.8)
[2017-11-24 03:22] LABS: TOTAL PROTEIN 5.2 g/dL (6.4-8.3)
[2017-11-24 03:23] LABS: TOTAL BILIRUBIN 1.2 mg/dL (0.0-1.0)
[2017-11-24 03:24] LABS: ALKALINE PHOSPHATASE 558 IU/L (3-129)
[2017-11-24 03:27] LABS: AST (GOT) 125 IU/L (2-34); DIRECT BILIRUBIN 0.8 mg/dL (0.0-0.3)
[2017-11-24 03:28] LABS: ALT (GPT) 73 IU/L (3-49)
[2017-11-24 03:51] VITALS: BP 136/70
[2017-11-24 07:40] VITALS: BP 115/61
[2017-11-24 10:20] LABS: ALBUMIN 2.4 G/DL (3.2-4.8); DIRECT BILIRUBIN 0.5 mg/dL (0.0-0.3); TOTAL BILIRUBIN 1.2 MG/DL (0.0-1.0)
[2017-11-24 10:26] LABS: ALKALINE PHOSPHATASE 504 IU/L (3-129); ALT (GPT) 57 IU/L (3-49); AST (GOT) 87 IU/L (2-34); TOTAL PROTEIN 5.2 G/DL (6.4-8.3); URIC ACID 4.3 mg/dL (3.1-9.2)
[2017-11-24 10:39] LABS: THYROTROPIN (TSH) 1.3 MIU/L (0.4-5.5)
[2017-11-24 16:38] VITALS: BP 142/67
[2017-11-25 07:35] LABS: CHLORIDE 90 MEQ/L (99-109); CREATININE 0.7 MG/DL (0.6-1.3); GFR ESTIMATE (CALCULATED) > 59 mL/min/ (58.99-99999); GLUCOSE 208 mg/dL (70-99); POTASSIUM 4.4 MEQ/L (3.7-5.4); SODIUM 129 MEQ/L (136-147); UREA NITROGEN (BUN) 19 mg/dL (9-23)
[2017-11-25 07:44] VITALS: BP 143/73
[2017-11-25 12:29] LABS: FOLIC ACID (FOLATE) > 22.0 NG/ML (5.0-22.0)
[2017-11-25 15:59] VITALS: BP 141/69
[2017-11-26 07:50] VITALS: BP 149/75
[2017-11-26 16:26] VITALS: BP 126/66
[2017-11-27 08:18] VITALS: BP 104/68
[2017-11-27] MEDS ORDERED: MULTI VITAMIN1 EACH PO (08:51)
[2017-11-27] MEDS ORDERED: CYCLOBENZAPRINE5 MG PO (08:51)
[2017-11-27] MEDS ORDERED: FOLIC ACID1 MG PO (08:51)
== END 2017-11-27 15:43 | disposition home or self-care (01) | DRG 882 ==
LOC: EME → EDBD 19:46 → 1WEST 22:48 → EDOF 22:48 → ENRESERV 23:43 → EDOF 11-24 03:39 → 1WEST 11-24 03:48
PROVIDERS: Emergency Medicine; Hospitalist; Physician Assistant Medical; Psychiatry & Neurology Psychiatry
DX: F43.23 Adjustment disorder with mixed anxiety and depressed mood (principal); E87.1 Hypo-osmolality and hyponatremia; E83.51 Hypocalcemia; E11.65 Type 2 diabetes mellitus with hyperglycemia; K86.1 Other chronic pancreatitis; R45.851 Suicidal ideations; F10.20 Alcohol dependence, uncomplicated; Y90.0 Blood alcohol level of less than 20 mg/100 ml; M47.9 Spondylosis, unspecified; F17.200 Nicotine dependence, unspecified, uncomplicated; Z91.81 History of falling; Z86.73 Personal history of transient ischemic attack (TIA), and cerebral infarction without residual deficits; Z79.4 Long term (current) use of insulin
CPT/HCPCS: 72131; 72170; 73552; 73564; 80048; 80076; 82306; 82436; 82607; 82746; 82948; 83930; 83935; 84300; 84443; 84550; 84999; 85027; 90839; 97150 GO; 97166 GO; 99281; 99285; G0480; J1815; J7030

== ENCOUNTER 2018-01-25 10:37 | Emergency (ER) | payer OTHER ==
[~2018-01-25] VITALS: Ht 167.6 cm; Wt 56.7 kg
[~2018-01-25 10:37] MED LIST changes: +CYCLOBENZAPRINE5 MG PO; +MULTI VITAMIN1 EACH PO
[2018-01-25 11:16] LABS: ALBUMIN 3.1 g/dL (3.2-4.8)
[2018-01-25 11:17] LABS: CHLORIDE 95 mEq/L (99-109); POTASSIUM 4.2 mEq/L (3.7-5.4); SODIUM 128 mEq/L (136-147)
[2018-01-25 11:19] LABS: GLUCOSE 258 mg/dL (70-99); TOTAL PROTEIN 6.6 g/dL (6.4-8.3)
[2018-01-25 11:21] LABS: TOTAL BILIRUBIN 0.6 mg/dL (0.0-1.0)
[2018-01-25 11:22] LABS: ALKALINE PHOSPHATASE 499 IU/L (3-129)
[2018-01-25 11:23] LABS: CREATININE 0.9 mg/dL (0.6-1.3); GFR ESTIMATE (CALCULATED) > 59 mL/min/ (58.99-99999)
[2018-01-25 11:24] LABS: AST (GOT) 50 IU/L (2-34); UREA NITROGEN (BUN) 13 mg/dL (9-23)
[2018-01-25 11:25] LABS: ALT (GPT) 68 IU/L (3-49)
[2018-01-25 12:31] LABS: HEMATOCRIT 33.8 % (38.0-50.0); HEMOGLOBIN 11.3 G/DL (12.5-16.6); MCH 29.9 PG (29.0-34.0); MCHC 33.4 G/DL (30.0-36.0); MCV 89.4 FL (86-99); PLATELET COUNT 222 K/uL (156-360); RBC DIS.WIDTH-SD 46.2 % (39-53); RED BLOOD COUNT 3.78 M/uL (4.00-5.50); WHITE BLOOD COUNT 7.9 K/uL (4.1-10.2)
[2018-01-25 12:41] LABS: APPEARANCE CLEAR ((CLEAR)); BILIRUBIN SMALL; BLOOD NEGATIVE; COLOR AMBER ((YELLOW)); GLUCOSE (STRIP) 50; KETONES 20; LEUKOCYTES NEGATIVE; NITRITE NEGATIVE; PROTEIN (STRIP) 30; SPECIFIC GRAVITY 1.035 (1.000-1.030); UCUL ADDED? NO
[2018-01-25 12:59] LABS: AMYLASE 25 IU/L (1-118); LIPASE 3 U/L (1.0-51.0)
[2018-01-25] MEDS ORDERED: ZITHROMAX Z-PA250 MG PO (14:53)
[2018-01-25 15:18] VITALS: BP 146/82
== END 2018-01-25 15:18 | disposition home or self-care (01) ==
LOC: EME 10:37
DX: R10.32 Left lower quadrant pain (principal); J18.9 Pneumonia, unspecified organism; F32.9 Major depressive disorder, single episode, unspecified; F17.200 Nicotine dependence, unspecified, uncomplicated; Z86.73 Personal history of transient ischemic attack (TIA), and cerebral infarction without residual deficits; Z90.49 Acquired absence of other specified parts of digestive tract
CPT/HCPCS: 74177; 80053; 81003; 82150; 83690; 85027; 99281; 99285; J3010; J7030